=== PATIENT | female | born 1950 | race Caucasian/White ===

== ENCOUNTER 2017-09-10 16:14 | Inpatient (IN) | payer MEDICARE, MEDICAID ==
[~2017-09-10] VITALS: Ht 167.6 cm; Wt 139.3 kg
[2017-09-10 17:12] LABS: CLARITY,URINE TURBID (Clear); COLOR,URINE YELLOW (Yellow); GLUCOSE, URINE NEGATIVE (Neg); KETONES,URINE TRACE mg/dl (Neg); LEUKOCYTE ESTERASE ,URINE LARGE (Neg); NITRITES, URINE NEGATIVE (Neg); OCCULT BLOOD,URINE LARGE (Neg); PH,URINE 5.5 (4.8-8.0); PROTEIN,URINE 100 mg/dl (Neg); UROBILINOGEN,URINE 0.2 E.U/dL (0.2-1.0)
[2017-09-10 17:13] LABS: BASOPHILS % (AUTO) 0.2 % (0-1); EOSINOPHILS # (AUTO) 0.1 X10'3 (0-0.9); HEMATOCRIT 28.2 % (35.0-45.0); HEMOGLOBIN 9.8 g/dl (12.0-16.0); LYMPHOCYTES # (AUTO) 1.3 X10'3 (1.1-4.8); LYMPHOCYTES % (AUTO) 13.5 % (21-51); MEAN CORPUSCULAR HEMOGLOBIN 31.2 PG (27.0-31.0); MEAN CORPUSCULAR HGB CONC 34.6 % (33.0-36.5); MEAN CORPUSCULAR VOLUME 90.4 FL (78-98); MEAN PLATELET VOLUME 6.2 FL (7.4-10.4); MONOCYTES # (AUTO) 0.8 X10'3 (0-0.9); NEUTROPHILS # (AUTO) 7.7 X10'3 (1.8-7.7); NEUTROPHILS % (AUTO) 77.3 % (42-75); PLATELET COUNT 305 X10'3 (140-440); RED BLOOD COUNT 3.12 X10'6 (4.20-5.60); RED CELL DISTRIBUTION WIDTH 16.6 % (11.5-14.5)
[2017-09-10 17:23] LABS: INR 1.1 INR; PARTIAL THROMBOPLASTIN TIME 28 SECONDS (22-32)
[2017-09-10 17:28] LABS: ALANINE AMINOTRANSFERASE 31 U/L (12-78); ALBUMIN 2.6 G/DL (3.4-5.0); ALBUMIN/GLOBULIN RATIO 0.5 (1.1-1.5); ALKALINE PHOSPHATASE 80 IU/L (46-116); ANION GAP 19 (8-16); ASPARTATE AMINO TRANSFERASE 50 U/L (10-37); BILIRUBIN,TOTAL 0.2 MG/DL (0.1-1.0); BLOOD UREA NITROGEN 105 MG/DL (7-18); BUN/CREATININE RATIO 13.5 (6.6-38.0); CALCIUM 11.4 MG/DL (8.5-10.1); CHLORIDE 97 MMOL/L (99-107); CREATININE 7.78 MG/DL (0.40-0.90); GLUCOSE 163 MG/DL (70-104); SODIUM 131 MMOL/L (135-145); TOTAL CARBON DIOXIDE 15.3 MMOL/L (24-32); TOTAL PROTEIN 8.1 G/DL (6.4-8.2); eGFR 5 ML/MIN
[2017-09-10 17:30] LABS: UA COLLECTION TYPE CLN CATCH MIDSTREAM
[2017-09-10] MEDS ORDERED: normal saline 1000ML IV soln IVB ONE (17:35)
[2017-09-10 17:49] LABS: BACTERIA,URINE 2+ /HPF (Neg); MUCUS STRANDS NONE SEEN /LPF (Neg); SQUAMOUS EPITHELIAL CELL,UR FEW /LPF (FEW); WBC,URINE TNTC /HPF (0-4)
[2017-09-10] MEDS ORDERED: CefTRIAXone/D5W-Rocephin 1gm 50 ML IV ONE (17:50)
[2017-09-10] MEDS ORDERED: potassium Cl 20 mEq SR tablet PO ONE (19:30)
[2017-09-10] MEDS ORDERED: normal saline 1000ml 1,000 ML IV SCH (20:49)
[2017-09-10] MEDS ORDERED: ondansetron/PF 4mg/2ml inj IV PRN (20:50)
[2017-09-10] MEDS ORDERED: LEVO100T9 PO (21:14)
[2017-09-10] MEDS ORDERED: ALBU18HF2 INH (21:14)
[2017-09-10] MEDS ORDERED: FERR325T28 PO (21:14)
[2017-09-10] MEDS ORDERED: ACET-2119 PO (21:14)
[2017-09-10] MEDS ORDERED: VIT1TABL50 PO (21:14)
[2017-09-10] MEDS ORDERED: HYDR-565 PO (21:14)
[2017-09-10] MEDS ORDERED: FURO40TA4 PO (21:14)
[2017-09-10] MEDS ORDERED: CLON0.2T PO (21:14)
[2017-09-10] MEDS ORDERED: QUET25TA PO (21:14)
[2017-09-10] MEDS ORDERED: DIPH25CA83 PO (21:14)
[2017-09-10] MEDS ORDERED: DOCU250C4 PO (21:14)
[2017-09-10] MEDS ORDERED: AMLO10TA13 PO (21:14)
[2017-09-10] MEDS ORDERED: LOXA50CA PO (21:14)
[2017-09-10] MEDS ORDERED: QUET50TA PO (21:14)
[2017-09-10] MEDS ORDERED: FOLI1TAB16 PO (21:14)
[2017-09-10] MEDS ORDERED: LACT10SO PO (21:14)
[2017-09-10] MEDS ORDERED: LORA1TAB PO (21:14)
[2017-09-10] MEDS ORDERED: BENZ2TAB7 PO (21:14)
[2017-09-10] MEDS ORDERED: POTASSIUM ACETATE IV SCH (21:15)
[2017-09-10] MEDS ORDERED: NORMAL SALINE IV SCH (21:15)
[2017-09-10 23:30] VITALS: BP 132/75
[2017-09-11 06:13] LABS: BASOPHILS % (AUTO) 0.4 % (0-1); EOSINOPHILS # (AUTO) 0.3 X10'3 (0-0.9); EOSINOPHILS % (AUTO) 3.4 % (0-6); HEMATOCRIT 25.6 % (35.0-45.0); HEMOGLOBIN 8.7 g/dl (12.0-16.0); LYMPHOCYTES % (AUTO) 12.2 % (21-51); MEAN CORPUSCULAR HEMOGLOBIN 31.1 PG (27.0-31.0); MEAN CORPUSCULAR HGB CONC 34.1 % (33.0-36.5); MEAN CORPUSCULAR VOLUME 91.2 FL (78-98); MEAN PLATELET VOLUME 6.4 FL (7.4-10.4); MONOCYTES # (AUTO) 0.7 X10'3 (0-0.9); MONOCYTES % (AUTO) 9.3 % (2-12); NEUTROPHILS # (AUTO) 5.9 X10'3 (1.8-7.7); NEUTROPHILS % (AUTO) 74.7 % (42-75); PLATELET COUNT 248 X10'3 (140-440); RED CELL DISTRIBUTION WIDTH 16.1 % (11.5-14.5); WHITE BLOOD COUNT 7.9 X10'3 (4.5-11.0)
[2017-09-11 06:17] LABS: ALBUMIN 2.3 G/DL (3.4-5.0); ANION GAP 15 (8-16); BLOOD UREA NITROGEN 103 MG/DL (7-18); BUN/CREATININE RATIO 13.4 (6.6-38.0); CALCIUM 10.4 MG/DL (8.5-10.1); CHLORIDE 102 MMOL/L (99-107); CREATININE 7.67 MG/DL (0.40-0.90); GLUCOSE 122 MG/DL (70-104); POTASSIUM 3.1 MMOL/L (3.5-5.1); SODIUM 131 MMOL/L (135-145); eGFR 5 ML/MIN
[2017-09-11 06:19] LABS: TOTAL CARBON DIOXIDE 13.9 MMOL/L (24-32)
[2017-09-11] MEDS ORDERED: normal saline 1000ml 1,000 ML IV SCH (07:05)
[2017-09-11 07:27] VITALS: BP 120/51
[2017-09-11] MEDS ORDERED: docusate sod 100mg capsule PO SCH (08:00)
[2017-09-11] MEDS: lactobacillus rhamnosus 10,000 MMU CELLS/CAPSULE PO SCH ×2 (08:30→19:11)
[2017-09-11] MEDS: CefTRIAXone/D5W-Rocephin 1gm 50 ML IV SCH (08:30)
[2017-09-11] MEDS ORDERED: [UNRECOGNIZED DRUG - OTHER] IV SCH (09:25)
[2017-09-11] MEDS ORDERED: POTASSIUM CL IV SCH (09:25)
[2017-09-11] MEDS ORDERED: SODIUM BICARBONATE IV SCH (09:25)
[2017-09-11] MEDS: POTASSIUM ACETATE IV SCH (11:06)
[2017-09-11] MEDS: [UNRECOGNIZED DRUG - OTHER] IV SCH (11:06)
[2017-09-11] MEDS: SODIUM BICARBONATE IV SCH (11:06)
[2017-09-11] MEDS: HYDROcodone/acetaminophen 5mg/325mg tablet PO PRN ×2 (11:09→19:10)
[2017-09-11 11:19] VITALS: BP 144/58
[2017-09-11] MEDS ORDERED: non-formulary drug (Albuterol Sulfate (Ventolin Hfa) 2 PUFFS) INH PRN (12:10)
[2017-09-11] MEDS ORDERED: albuterol 2.5 MG/3 ML nebule NEB PRN (12:25)
[2017-09-11] MEDS: lactulose 20gm/30ml cup PO SCH ×2 (17:23→21:30)
[2017-09-11] MEDS: benztropine 1mg tablet PO SCH (19:10)
[2017-09-11] MEDS: docusate sod 250mg capsule PO SCH (19:10)
[2017-09-11] MEDS: heparin, porcine 5000 units/ml vial SQ SCH (19:11)
[2017-09-11 19:30] VITALS: BP 135/60
[2017-09-11] MEDS: LOXAPINE 50 MG PO SCH (20:00)
[2017-09-11] MEDS ORDERED: BENZTROPINE MESYLATE PO SCH (20:00)
[2017-09-11] MEDS ORDERED: LOXAPINE SUCCINATE PO SCH (20:00)
[2017-09-11] MEDS ORDERED: non-formulary drug (Quetiapine Fumarate (Seroquel) 1 TAB) PO SCH (21:00)
[2017-09-11] MEDS: QUEtiapine 25mg tablet PO SCH (21:30)
[2017-09-12] VITALS: BP 133/79
[2017-09-12] MEDS: [UNRECOGNIZED DRUG - OTHER] IV SCH ×3 (00:11→13:48)
[2017-09-12] MEDS: POTASSIUM ACETATE IV SCH ×3 (00:11→13:48)
[2017-09-12] MEDS: SODIUM BICARBONATE IV SCH ×3 (00:11→13:48)
[2017-09-12 06:05] LABS: BASOPHILS % (AUTO) 0.4 % (0-1); EOSINOPHILS # (AUTO) 0.3 X10'3 (0-0.9); EOSINOPHILS % (AUTO) 3.9 % (0-6); HEMATOCRIT 23.4 % (35.0-45.0); HEMOGLOBIN 8.1 g/dl (12.0-16.0); LYMPHOCYTES # (AUTO) 1.2 X10'3 (1.1-4.8); LYMPHOCYTES % (AUTO) 16.1 % (21-51); MEAN CORPUSCULAR HGB CONC 34.4 % (33.0-36.5); MEAN PLATELET VOLUME 5.8 FL (7.4-10.4); MONOCYTES # (AUTO) 0.7 X10'3 (0-0.9); NEUTROPHILS # (AUTO) 5.3 X10'3 (1.8-7.7); NEUTROPHILS % (AUTO) 70.6 % (42-75); PLATELET COUNT 231 X10'3 (140-440); RED CELL DISTRIBUTION WIDTH 16.1 % (11.5-14.5); WHITE BLOOD COUNT 7.4 X10'3 (4.5-11.0)
[2017-09-12 06:28] LABS: ALBUMIN 2.1 G/DL (3.4-5.0); ANION GAP 16 (8-16); BLOOD UREA NITROGEN 97 MG/DL (7-18); BUN/CREATININE RATIO 14.3 (6.6-38.0); CALCIUM 9.5 MG/DL (8.5-10.1); CHLORIDE 102 MMOL/L (99-107); CREATININE 6.76 MG/DL (0.40-0.90); GLUCOSE 138 MG/DL (70-104); SODIUM 135 MMOL/L (135-145); TOTAL CARBON DIOXIDE 17.2 MMOL/L (24-32); eGFR 6 ML/MIN
[2017-09-12 06:30] LABS: POTASSIUM 2.9 MMOL/L (3.5-5.1)
[2017-09-12] MEDS ORDERED: potassium Cl 20 mEq SR tablet PO STA (06:56)
[2017-09-12 07:14] VITALS: BP 135/63
[2017-09-12] MEDS ORDERED: non-formulary drug (Vit B Cmplx 3/FA/Vit C/Biotin (Rena-Vite Rx Tablet) 1 TAB) PO SCH (08:00)
[2017-09-12] MEDS ORDERED: non-formulary drug (Amlodipine Besylate 1 TAB) PO SCH (08:00)
[2017-09-12] MEDS: LOXAPINE 50 MG PO SCH ×2 (08:00→19:44)
[2017-09-12] MEDS: heparin, porcine 5000 units/ml vial SQ SCH ×2 (09:02→19:44)
[2017-09-12] MEDS: ferrous sulfate 325mg tablet PO SCH (09:03)
[2017-09-12] MEDS: lactulose 20gm/30ml cup PO SCH ×2 (09:03→16:12)
[2017-09-12] MEDS: benztropine 1mg tablet PO SCH ×2 (09:03→19:43)
[2017-09-12] MEDS: lactobacillus rhamnosus 10,000 MMU CELLS/CAPSULE PO SCH ×2 (09:03→19:43)
[2017-09-12] MEDS: folic acid 1mg tablet PO SCH (09:03)
[2017-09-12] MEDS: docusate sod 250mg capsule PO SCH ×2 (09:03→19:43)
[2017-09-12] MEDS: CefTRIAXone/D5W-Rocephin 1gm 50 ML IV SCH (09:03)
[2017-09-12] MEDS: amLODIPine 5mg tablet PO SCH (09:03)
[2017-09-12] MEDS: QUEtiapine 25mg tablet PO SCH ×2 (09:03→21:28)
[2017-09-12] MEDS: levoTHYROXINE 100mcg tablet PO SCH (09:03)
[2017-09-12] MEDS: folic acid/vitamin B complex w/vitamin C 0.8mg tablet PO SCH (09:03)
[2017-09-12 11:28] VITALS: BP 161/83
[2017-09-12 12:25] LABS: UREA NITROGEN 24HR,URINE 3.7 GM/24HR (7-20)
[2017-09-12] MEDS: cephalexin 250mg capsule PO SCH ×2 (13:48→19:43)
[2017-09-12 20:00] VITALS: BP 146/66
[2017-09-13] VITALS: BP 135/75
[2017-09-13] MEDS: cephalexin 250mg capsule PO SCH ×4 (02:53→21:08)
[2017-09-13 04:29] LABS: BASOPHILS % (AUTO) 0.3 % (0-1); EOSINOPHILS # (AUTO) 0.4 X10'3 (0-0.9); EOSINOPHILS % (AUTO) 4.5 % (0-6); HEMATOCRIT 24.1 % (35.0-45.0); HEMOGLOBIN 8.2 g/dl (12.0-16.0); LYMPHOCYTES # (AUTO) 1.5 X10'3 (1.1-4.8); MEAN CORPUSCULAR HGB CONC 33.9 % (33.0-36.5); MEAN CORPUSCULAR VOLUME 91.3 FL (78-98); MEAN PLATELET VOLUME 6.1 FL (7.4-10.4); MONOCYTES # (AUTO) 0.8 X10'3 (0-0.9); MONOCYTES % (AUTO) 8.6 % (2-12); NEUTROPHILS # (AUTO) 6.1 X10'3 (1.8-7.7); NEUTROPHILS % (AUTO) 69.6 % (42-75); PLATELET COUNT 266 X10'3 (140-440); RED BLOOD COUNT 2.64 X10'6 (4.20-5.60); RED CELL DISTRIBUTION WIDTH 16.8 % (11.5-14.5); WHITE BLOOD COUNT 8.8 X10'3 (4.5-11.0)
[2017-09-13 04:45] LABS: ANION GAP 14 (8-16); BLOOD UREA NITROGEN 88 MG/DL (7-18); CALCIUM 9.5 MG/DL (8.5-10.1); CHLORIDE 103 MMOL/L (99-107); CREATININE 5.85 MG/DL (0.40-0.90); GLUCOSE 136 MG/DL (70-104); POTASSIUM 3.4 MMOL/L (3.5-5.1); SODIUM 137 MMOL/L (135-145); TOTAL CARBON DIOXIDE 20.5 MMOL/L (24-32); eGFR 7 ML/MIN
[2017-09-13 07:31] VITALS: BP 156/71
[2017-09-13] MEDS: docusate sod 250mg capsule PO SCH ×2 (07:51→21:08)
[2017-09-13] MEDS: lactulose 20gm/30ml cup PO SCH ×3 (07:51→15:07)
[2017-09-13] MEDS: benztropine 1mg tablet PO SCH ×2 (07:51→21:07)
[2017-09-13] MEDS: folic acid 1mg tablet PO SCH (07:52)
[2017-09-13] MEDS: folic acid/vitamin B complex w/vitamin C 0.8mg tablet PO SCH (07:52)
[2017-09-13] MEDS: levoTHYROXINE 100mcg tablet PO SCH (07:52)
[2017-09-13] MEDS: ferrous sulfate 325mg tablet PO SCH (07:52)
[2017-09-13] MEDS: lactobacillus rhamnosus 10,000 MMU CELLS/CAPSULE PO SCH ×2 (07:52→21:08)
[2017-09-13] MEDS: amLODIPine 5mg tablet PO SCH (07:56)
[2017-09-13] MEDS: QUEtiapine 25mg tablet PO SCH ×2 (07:57→21:08)
[2017-09-13] MEDS: LOXAPINE 50 MG PO SCH ×2 (07:57→21:09)
[2017-09-13] MEDS: heparin, porcine 5000 units/ml vial SQ SCH ×2 (07:57→21:09)
[2017-09-13] MEDS: SODIUM BICARBONATE IV SCH ×3 (11:24→22:38)
[2017-09-13] MEDS: [UNRECOGNIZED DRUG - OTHER] IV SCH ×3 (11:24→22:38)
[2017-09-13] MEDS: POTASSIUM ACETATE IV SCH ×3 (11:24→22:38)
[2017-09-13 11:53] VITALS: BP 150/74
[2017-09-13] MEDS ORDERED: potassium Cl 40MEQ/NS 500ml 500 ML IV PRN ×2 (15:40)
[2017-09-13] MEDS: K and/or MAG REPLACEMENT MC SCH (15:40)
[2017-09-13] MEDS: potassium Cl 20 mEq SR tablet PO PRN ×2 (17:50→22:35)
[2017-09-13 19:00] VITALS: BP 110/62
[2017-09-14] VITALS: BP 124/73
[2017-09-14] MEDS ORDERED: MESSAGE TO PHARMACY PO ONE (01:15)
[2017-09-14] MEDS ORDERED: dextrose 50%-water 50ml dispensing syringe IV PRN ×4 (01:15→01:20)
[2017-09-14] MEDS ORDERED: dextrose ORAL solution 15 GM/59 ML bottle PO PRN ×4 (01:15→01:20)
[2017-09-14] MEDS ORDERED: glucagon, human recombinant 1mg kit SUBCUT PRN ×2 (01:15→01:20)
[2017-09-14] MEDS ORDERED: insulin Lispro (HumaLOG) vial - multi-dose SQ SCH (01:20)
[2017-09-14] MEDS: potassium Cl 20 mEq SR tablet PO PRN (02:31)
[2017-09-14] MEDS: cephalexin 250mg capsule PO SCH ×4 (02:31→21:30)
[2017-09-14 05:50] LABS: BASOPHILS % (AUTO) 0.6 % (0-1); EOSINOPHILS # (AUTO) 0.4 X10'3 (0-0.9); EOSINOPHILS % (AUTO) 5.3 % (0-6); HEMATOCRIT 26.8 % (35.0-45.0); LYMPHOCYTES % (AUTO) 13.3 % (21-51); MEAN CORPUSCULAR HEMOGLOBIN 30.7 PG (27.0-31.0); MEAN CORPUSCULAR HGB CONC 33.6 % (33.0-36.5); MEAN CORPUSCULAR VOLUME 91.3 FL (78-98); MEAN PLATELET VOLUME 6.2 FL (7.4-10.4); MONOCYTES # (AUTO) 0.7 X10'3 (0-0.9); MONOCYTES % (AUTO) 8.7 % (2-12); NEUTROPHILS # (AUTO) 5.6 X10'3 (1.8-7.7); NEUTROPHILS % (AUTO) 72.1 % (42-75); PLATELET COUNT 283 X10'3 (140-440); RED BLOOD COUNT 2.93 X10'6 (4.20-5.60); RED CELL DISTRIBUTION WIDTH 16.5 % (11.5-14.5); WHITE BLOOD COUNT 7.7 X10'3 (4.5-11.0)
[2017-09-14 06:16] LABS: ALBUMIN 2.1 G/DL (3.4-5.0); ANION GAP 10 (8-16); BLOOD UREA NITROGEN 81 MG/DL (7-18); BUN/CREATININE RATIO 15.5 (6.6-38.0); CALCIUM 9.1 MG/DL (8.5-10.1); CHLORIDE 103 MMOL/L (99-107); CREATININE 5.24 MG/DL (0.40-0.90); GLUCOSE 149 MG/DL (70-104); POTASSIUM 4.2 MMOL/L (3.5-5.1); SODIUM 139 MMOL/L (135-145); eGFR 8 ML/MIN
[2017-09-14 07:00] VITALS: BP 127/72
[2017-09-14] MEDS: K and/or MAG REPLACEMENT MC SCH (07:40)
[2017-09-14] MEDS: lactulose 20gm/30ml cup PO SCH ×2 (08:00)
[2017-09-14] MEDS: amLODIPine 5mg tablet PO SCH (08:58)
[2017-09-14] MEDS: folic acid/vitamin B complex w/vitamin C 0.8mg tablet PO SCH (08:58)
[2017-09-14] MEDS: folic acid 1mg tablet PO SCH (08:58)
[2017-09-14] MEDS: docusate sod 250mg capsule PO SCH ×2 (08:58→21:30)
[2017-09-14] MEDS: lactobacillus rhamnosus 10,000 MMU CELLS/CAPSULE PO SCH ×2 (08:58→21:30)
[2017-09-14] MEDS: ferrous sulfate 325mg tablet PO SCH (08:58)
[2017-09-14] MEDS: QUEtiapine 25mg tablet PO SCH ×2 (08:58→21:30)
[2017-09-14] MEDS: benztropine 1mg tablet PO SCH ×2 (08:58→21:30)
[2017-09-14] MEDS: levoTHYROXINE 100mcg tablet PO SCH (08:58)
[2017-09-14] MEDS: LOXAPINE 50 MG PO SCH ×2 (08:59→21:31)
[2017-09-14] MEDS: heparin, porcine 5000 units/ml vial SQ SCH ×2 (08:59→21:31)
[2017-09-14] MEDS: insulin Lispro (HumaLOG) vial - multi-dose SQ SCH ×3 (09:49→19:12)
[2017-09-14 11:00] VITALS: BP 122/64
[2017-09-14] MEDS: POTASSIUM ACETATE IV SCH (14:06)
[2017-09-14] MEDS: [UNRECOGNIZED DRUG - OTHER] IV SCH (14:06)
[2017-09-14] MEDS: SODIUM BICARBONATE IV SCH (14:06)
[2017-09-14 20:00] VITALS: BP 156/90
[2017-09-14] MEDS ORDERED: insulin glargine (Lantus) pen - multi-dose SQ SCH (21:00)
[2017-09-14] MEDS: insulin glargine (Lantus) pen - multi-dose SQ SCH (21:00)
[2017-09-14] MEDS: LORazepam 1 MG tablet PO PRN (21:30)
[2017-09-15] VITALS: BP 150/80
[2017-09-15] MEDS: SODIUM BICARBONATE IV SCH (01:20)
[2017-09-15] MEDS: [UNRECOGNIZED DRUG - OTHER] IV SCH (01:20)
[2017-09-15] MEDS: POTASSIUM ACETATE IV SCH (01:20)
[2017-09-15] MEDS: cephalexin 250mg capsule PO SCH ×4 (01:36→20:51)
[2017-09-15 05:50] LABS: BASOPHILS % (AUTO) 0.7 % (0-1); EOSINOPHILS # (AUTO) 0.5 X10'3 (0-0.9); EOSINOPHILS % (AUTO) 6.7 % (0-6); HEMATOCRIT 26.1 % (35.0-45.0); HEMOGLOBIN 8.8 g/dl (12.0-16.0); LYMPHOCYTES # (AUTO) 1.3 X10'3 (1.1-4.8); LYMPHOCYTES % (AUTO) 18.5 % (21-51); MEAN CORPUSCULAR HEMOGLOBIN 30.8 PG (27.0-31.0); MEAN CORPUSCULAR HGB CONC 33.7 % (33.0-36.5); MEAN CORPUSCULAR VOLUME 91.3 FL (78-98); MONOCYTES # (AUTO) 0.6 X10'3 (0-0.9); MONOCYTES % (AUTO) 9.2 % (2-12); NEUTROPHILS # (AUTO) 4.5 X10'3 (1.8-7.7); NEUTROPHILS % (AUTO) 64.9 % (42-75); PLATELET COUNT 256 X10'3 (140-440); RED BLOOD COUNT 2.86 X10'6 (4.20-5.60); RED CELL DISTRIBUTION WIDTH 16.5 % (11.5-14.5); WHITE BLOOD COUNT 6.9 X10'3 (4.5-11.0)
[2017-09-15 06:15] LABS: ANION GAP 8 (8-16); BLOOD UREA NITROGEN 69 MG/DL (7-18); BUN/CREATININE RATIO 15.6 (6.6-38.0); CHLORIDE 99 MMOL/L (99-107); CREATININE 4.42 MG/DL (0.40-0.90); GLUCOSE 131 MG/DL (70-104); POTASSIUM 4.1 MMOL/L (3.5-5.1); SODIUM 136 MMOL/L (135-145); TOTAL CARBON DIOXIDE 29.1 MMOL/L (24-32); eGFR 10 ML/MIN
[2017-09-15 08:00] VITALS: BP 150/85
[2017-09-15] MEDS: K and/or MAG REPLACEMENT MC SCH (08:00)
[2017-09-15] MEDS: ferrous sulfate 325mg tablet PO SCH (08:45)
[2017-09-15] MEDS: levoTHYROXINE 100mcg tablet PO SCH (08:45)
[2017-09-15] MEDS: folic acid 1mg tablet PO SCH (08:45)
[2017-09-15] MEDS: folic acid/vitamin B complex w/vitamin C 0.8mg tablet PO SCH (08:45)
[2017-09-15] MEDS: amLODIPine 5mg tablet PO SCH (08:45)
[2017-09-15] MEDS: lactobacillus rhamnosus 10,000 MMU CELLS/CAPSULE PO SCH ×2 (08:45→20:51)
[2017-09-15] MEDS: docusate sod 250mg capsule PO SCH ×2 (08:45→20:50)
[2017-09-15] MEDS: benztropine 1mg tablet PO SCH ×2 (08:45→20:50)
[2017-09-15] MEDS: heparin, porcine 5000 units/ml vial SQ SCH ×2 (08:46→20:53)
[2017-09-15] MEDS: QUEtiapine 25mg tablet PO SCH ×2 (08:47→20:52)
[2017-09-15] MEDS: LOXAPINE 50 MG PO SCH ×2 (08:47→20:51)
[2017-09-15 12:00] VITALS: BP 157/80
[2017-09-15] MEDS: normal saline 1000ml 1,000 ML IV SCH (12:01)
[2017-09-15] MEDS: insulin Lispro (HumaLOG) vial - multi-dose SQ SCH (19:51)
[2017-09-15 20:00] VITALS: BP 140/77
[2017-09-15] MEDS: insulin glargine (Lantus) pen - multi-dose SQ SCH (21:00)
[2017-09-16] VITALS: BP 139/80
[2017-09-16] MEDS: cephalexin 250mg capsule PO SCH ×4 (02:37→21:48)
[2017-09-16 05:57] LABS: BASOPHILS % (AUTO) 0.4 % (0-1); EOSINOPHILS # (AUTO) 0.3 X10'3 (0-0.9); EOSINOPHILS % (AUTO) 4.8 % (0-6); HEMATOCRIT 26.1 % (35.0-45.0); LYMPHOCYTES # (AUTO) 1.4 X10'3 (1.1-4.8); LYMPHOCYTES % (AUTO) 20.1 % (21-51); MEAN CORPUSCULAR HEMOGLOBIN 31.3 PG (27.0-31.0); MEAN CORPUSCULAR HGB CONC 34.5 % (33.0-36.5); MEAN CORPUSCULAR VOLUME 90.8 FL (78-98); MEAN PLATELET VOLUME 6.1 FL (7.4-10.4); MONOCYTES # (AUTO) 0.6 X10'3 (0-0.9); MONOCYTES % (AUTO) 8.6 % (2-12); NEUTROPHILS # (AUTO) 4.6 X10'3 (1.8-7.7); NEUTROPHILS % (AUTO) 66.1 % (42-75); PLATELET COUNT 233 X10'3 (140-440); RED BLOOD COUNT 2.87 X10'6 (4.20-5.60); RED CELL DISTRIBUTION WIDTH 16.5 % (11.5-14.5); WHITE BLOOD COUNT 6.9 X10'3 (4.5-11.0)
[2017-09-16] MEDS: normal saline 1000ml 1,000 ML IV SCH ×2 (07:10→14:07)
[2017-09-16 07:27] VITALS: BP 117/55
[2017-09-16] MEDS: K and/or MAG REPLACEMENT MC SCH (08:00)
[2017-09-16 10:11] LABS: ALANINE AMINOTRANSFERASE 29 U/L (12-78); ALBUMIN 2.2 G/DL (3.4-5.0); ALBUMIN/GLOBULIN RATIO 0.5 (1.1-1.5); ALKALINE PHOSPHATASE 65 IU/L (46-116); ANION GAP 10 (8-16); ASPARTATE AMINO TRANSFERASE 31 U/L (10-37); BILIRUBIN,TOTAL 0.2 MG/DL (0.1-1.0); BLOOD UREA NITROGEN 64 MG/DL (7-18); BUN/CREATININE RATIO 14.1 (6.6-38.0); CALCIUM 9.2 MG/DL (8.5-10.1); CHLORIDE 103 MMOL/L (99-107); CREATININE 4.53 MG/DL (0.40-0.90); GLUCOSE 114 MG/DL (70-104); MAGNESIUM 2.4 MG/DL (1.5-2.4); SODIUM 140 MMOL/L (135-145); TOTAL CARBON DIOXIDE 27.4 MMOL/L (24-32); eGFR 10 ML/MIN
[2017-09-16] MEDS: levoTHYROXINE 100mcg tablet PO SCH (10:13)
[2017-09-16] MEDS: benztropine 1mg tablet PO SCH ×2 (10:13→21:48)
[2017-09-16] MEDS: QUEtiapine 25mg tablet PO SCH ×2 (10:13→21:48)
[2017-09-16 10:14] LABS: POTASSIUM 4.5 MMOL/L (3.5-5.1)
[2017-09-16] MEDS: amLODIPine 5mg tablet PO SCH (10:14)
[2017-09-16] MEDS: lactobacillus rhamnosus 10,000 MMU CELLS/CAPSULE PO SCH ×2 (10:14→21:48)
[2017-09-16] MEDS: folic acid/vitamin B complex w/vitamin C 0.8mg tablet PO SCH (10:14)
[2017-09-16] MEDS: folic acid 1mg tablet PO SCH (10:14)
[2017-09-16] MEDS: ferrous sulfate 325mg tablet PO SCH (10:15)
[2017-09-16] MEDS: docusate sod 250mg capsule PO SCH ×2 (10:15→21:48)
[2017-09-16] MEDS: LOXAPINE 50 MG PO SCH ×2 (10:15→21:49)
[2017-09-16] MEDS: heparin, porcine 5000 units/ml vial SQ SCH ×2 (10:16→20:00)
[2017-09-16 11:45] VITALS: BP 117/63
[2017-09-16] MEDS: insulin Lispro (HumaLOG) vial - multi-dose SQ SCH ×2 (14:00→19:42)
[2017-09-16 20:00] VITALS: BP 138/69
[2017-09-16] MEDS: insulin glargine (Lantus) pen - multi-dose SQ SCH (21:00)
[2017-09-17] VITALS: BP 152/76
[2017-09-17] MEDS: cephalexin 250mg capsule PO SCH ×4 (03:12→21:56)
[2017-09-17 05:48] LABS: BASOPHILS % (AUTO) 0.7 % (0-1); EOSINOPHILS # (AUTO) 0.3 X10'3 (0-0.9); HEMOGLOBIN 8.9 g/dl (12.0-16.0); LYMPHOCYTES # (AUTO) 1.2 X10'3 (1.1-4.8); LYMPHOCYTES % (AUTO) 20.1 % (21-51); MEAN CORPUSCULAR HEMOGLOBIN 30.7 PG (27.0-31.0); MEAN CORPUSCULAR HGB CONC 32.9 % (33.0-36.5); MEAN CORPUSCULAR VOLUME 93.2 FL (78-98); MEAN PLATELET VOLUME 5.9 FL (7.4-10.4); MONOCYTES # (AUTO) 0.5 X10'3 (0-0.9); MONOCYTES % (AUTO) 9.4 % (2-12); NEUTROPHILS # (AUTO) 3.7 X10'3 (1.8-7.7); NEUTROPHILS % (AUTO) 64.8 % (42-75); PLATELET COUNT 212 X10'3 (140-440); WHITE BLOOD COUNT 5.7 X10'3 (4.5-11.0)
[2017-09-17 06:15] LABS: ALANINE AMINOTRANSFERASE 31 U/L (12-78); ALBUMIN/GLOBULIN RATIO 0.5 (1.1-1.5); ALKALINE PHOSPHATASE 53 IU/L (46-116); ANION GAP 9 (8-16); ASPARTATE AMINO TRANSFERASE 27 U/L (10-37); BILIRUBIN,TOTAL 0.3 MG/DL (0.1-1.0); BLOOD UREA NITROGEN 56 MG/DL (7-18); CALCIUM 8.8 MG/DL (8.5-10.1); CHLORIDE 105 MMOL/L (99-107); GLUCOSE 115 MG/DL (70-104); MAGNESIUM 2.3 MG/DL (1.5-2.4); PHOSPHORUS 3.8 MG/DL (2.3-4.5); POTASSIUM 3.9 MMOL/L (3.5-5.1); SODIUM 141 MMOL/L (135-145); TOTAL CARBON DIOXIDE 26.7 MMOL/L (24-32); TOTAL PROTEIN 6.4 G/DL (6.4-8.2); eGFR 10 ML/MIN
[2017-09-17 06:56] VITALS: BP 138/72
[2017-09-17] MEDS: K and/or MAG REPLACEMENT MC SCH (07:28)
[2017-09-17] MEDS: QUEtiapine 25mg tablet PO SCH ×2 (08:45→21:58)
[2017-09-17] MEDS: ferrous sulfate 325mg tablet PO SCH (08:46)
[2017-09-17] MEDS: folic acid/vitamin B complex w/vitamin C 0.8mg tablet PO SCH (08:46)
[2017-09-17] MEDS: lactobacillus rhamnosus 10,000 MMU CELLS/CAPSULE PO SCH ×2 (08:46→21:58)
[2017-09-17] MEDS: folic acid 1mg tablet PO SCH (08:46)
[2017-09-17] MEDS: amLODIPine 5mg tablet PO SCH (08:47)
[2017-09-17] MEDS: benztropine 1mg tablet PO SCH ×2 (08:47→21:58)
[2017-09-17] MEDS: levoTHYROXINE 100mcg tablet PO SCH (08:47)
[2017-09-17] MEDS: docusate sod 250mg capsule PO SCH ×2 (08:47→21:57)
[2017-09-17] MEDS: LOXAPINE 50 MG PO SCH ×2 (08:48→22:01)
[2017-09-17] MEDS: heparin, porcine 5000 units/ml vial SQ SCH ×2 (08:49→21:58)
[2017-09-17] MEDS: insulin Lispro (HumaLOG) vial - multi-dose SQ SCH ×3 (10:17→19:02)
[2017-09-17] MEDS: normal saline 1000ml 1,000 ML IV SCH (16:56)
[2017-09-17 19:00] VITALS: BP 139/87
[2017-09-17] MEDS: insulin glargine (Lantus) pen - multi-dose SQ SCH (21:00)
[2017-09-18] VITALS: BP 142/75
[2017-09-18] MEDS: diphenhydrAMINE 25mg capsule PO PRN ×2 (00:13→22:59)
[2017-09-18] MEDS: cephalexin 250mg capsule PO SCH ×3 (01:55→13:36)
[2017-09-18 06:04] LABS: BASOPHILS % (AUTO) 0.7 % (0-1); EOSINOPHILS # (AUTO) 0.4 X10'3 (0-0.9); HEMATOCRIT 24.5 % (35.0-45.0); HEMOGLOBIN 8.1 g/dl (12.0-16.0); LYMPHOCYTES # (AUTO) 1.4 X10'3 (1.1-4.8); LYMPHOCYTES % (AUTO) 22.3 % (21-51); MEAN CORPUSCULAR HEMOGLOBIN 30.8 PG (27.0-31.0); MEAN CORPUSCULAR HGB CONC 33.2 % (33.0-36.5); MEAN CORPUSCULAR VOLUME 92.9 FL (78-98); MEAN PLATELET VOLUME 6.2 FL (7.4-10.4); MONOCYTES # (AUTO) 0.5 X10'3 (0-0.9); MONOCYTES % (AUTO) 8.4 % (2-12); NEUTROPHILS # (AUTO) 3.8 X10'3 (1.8-7.7); NEUTROPHILS % (AUTO) 62.6 % (42-75); PLATELET COUNT 189 X10'3 (140-440); RED BLOOD COUNT 2.64 X10'6 (4.20-5.60); RED CELL DISTRIBUTION WIDTH 15.9 % (11.5-14.5); WHITE BLOOD COUNT 6.1 X10'3 (4.5-11.0)
[2017-09-18 06:17] LABS: ALANINE AMINOTRANSFERASE 32 U/L (12-78); ALBUMIN/GLOBULIN RATIO 0.5 (1.1-1.5); ALKALINE PHOSPHATASE 51 IU/L (46-116); ANION GAP 10 (8-16); ASPARTATE AMINO TRANSFERASE 32 U/L (10-37); BILIRUBIN,TOTAL 0.2 MG/DL (0.1-1.0); BLOOD UREA NITROGEN 55 MG/DL (7-18); BUN/CREATININE RATIO 13.2 (6.6-38.0); CALCIUM 8.9 MG/DL (8.5-10.1); CHLORIDE 106 MMOL/L (99-107); CREATININE 4.18 MG/DL (0.40-0.90); GLUCOSE 105 MG/DL (70-104); MAGNESIUM 2.2 MG/DL (1.5-2.4); POTASSIUM 3.7 MMOL/L (3.5-5.1); SODIUM 140 MMOL/L (135-145); TOTAL CARBON DIOXIDE 23.9 MMOL/L (24-32); eGFR 11 ML/MIN
[2017-09-18] MEDS: K and/or MAG REPLACEMENT MC SCH (07:28)
[2017-09-18] MEDS: amLODIPine 5mg tablet PO SCH (07:38)
[2017-09-18] MEDS: ferrous sulfate 325mg tablet PO SCH (07:38)
[2017-09-18] MEDS: folic acid 1mg tablet PO SCH (07:38)
[2017-09-18] MEDS: QUEtiapine 25mg tablet PO SCH ×2 (07:38→20:58)
[2017-09-18] MEDS: levoTHYROXINE 100mcg tablet PO SCH (07:39)
[2017-09-18] MEDS: heparin, porcine 5000 units/ml vial SQ SCH ×2 (07:39→20:58)
[2017-09-18] MEDS: docusate sod 250mg capsule PO SCH ×2 (07:39→20:58)
[2017-09-18] MEDS: LOXAPINE 50 MG PO SCH ×2 (07:39→20:57)
[2017-09-18] MEDS: benztropine 1mg tablet PO SCH ×2 (07:39→20:59)
[2017-09-18] MEDS: folic acid/vitamin B complex w/vitamin C 0.8mg tablet PO SCH (07:39)
[2017-09-18] MEDS: lactobacillus rhamnosus 10,000 MMU CELLS/CAPSULE PO SCH ×2 (07:39→20:58)
[2017-09-18 08:00] VITALS: BP 147/81
[2017-09-18] MEDS: insulin Lispro (HumaLOG) vial - multi-dose SQ SCH ×3 (10:28→19:05)
[2017-09-18 12:00] VITALS: BP 143/71
[2017-09-18] MEDS: normal saline 1000ml 1,000 ML IV SCH (13:47)
[2017-09-18 20:00] VITALS: BP 132/76
[2017-09-18] MEDS: insulin glargine (Lantus) pen - multi-dose SQ SCH (20:50)
[2017-09-18] MEDS: HYDROcodone/acetaminophen 5mg/325mg tablet PO PRN (23:00)
[2017-09-19] VITALS: BP 145/74
[2017-09-19] MEDS: normal saline 1000ml 1,000 ML IV SCH (05:15)
[2017-09-19 05:17] LABS: BASOPHILS # (AUTO) 0.1 X10'3 (0-0.2); BASOPHILS % (AUTO) 0.8 % (0-1); EOSINOPHILS # (AUTO) 0.3 X10'3 (0-0.9); HEMATOCRIT 24.2 % (35.0-45.0); HEMOGLOBIN 8.1 g/dl (12.0-16.0); LYMPHOCYTES # (AUTO) 1.5 X10'3 (1.1-4.8); LYMPHOCYTES % (AUTO) 22.7 % (21-51); MEAN CORPUSCULAR HGB CONC 33.3 % (33.0-36.5); MEAN PLATELET VOLUME 6.1 FL (7.4-10.4); MONOCYTES # (AUTO) 0.6 X10'3 (0-0.9); MONOCYTES % (AUTO) 8.7 % (2-12); NEUTROPHILS # (AUTO) 4.1 X10'3 (1.8-7.7); NEUTROPHILS % (AUTO) 62.8 % (42-75); PLATELET COUNT 181 X10'3 (140-440); RED CELL DISTRIBUTION WIDTH 15.9 % (11.5-14.5); WHITE BLOOD COUNT 6.5 X10'3 (4.5-11.0)
[2017-09-19 05:47] LABS: ALANINE AMINOTRANSFERASE 35 U/L (12-78); ALBUMIN 2.1 G/DL (3.4-5.0); ALBUMIN/GLOBULIN RATIO 0.5 (1.1-1.5); ALKALINE PHOSPHATASE 56 IU/L (46-116); ANION GAP 11 (8-16); ASPARTATE AMINO TRANSFERASE 27 U/L (10-37); BILIRUBIN,TOTAL 0.2 MG/DL (0.1-1.0); BLOOD UREA NITROGEN 53 MG/DL (7-18); BUN/CREATININE RATIO 12.6 (6.6-38.0); CALCIUM 8.8 MG/DL (8.5-10.1); CHLORIDE 107 MMOL/L (99-107); CREATININE 4.21 MG/DL (0.40-0.90); GLUCOSE 114 MG/DL (70-104); MAGNESIUM 2.2 MG/DL (1.5-2.4); PHOSPHORUS 4.8 MG/DL (2.3-4.5); SODIUM 141 MMOL/L (135-145); TOTAL CARBON DIOXIDE 23.2 MMOL/L (24-32); TOTAL PROTEIN 6.4 G/DL (6.4-8.2); eGFR 11 ML/MIN
[2017-09-19 06:59] VITALS: BP 147/67
[2017-09-19] MEDS: K and/or MAG REPLACEMENT MC SCH (08:00)
[2017-09-19] MEDS: folic acid 1mg tablet PO SCH (08:13)
[2017-09-19] MEDS: lactobacillus rhamnosus 10,000 MMU CELLS/CAPSULE PO SCH ×2 (08:13→20:21)
[2017-09-19] MEDS: ferrous sulfate 325mg tablet PO SCH (08:13)
[2017-09-19] MEDS: benztropine 1mg tablet PO SCH ×2 (08:14→20:21)
[2017-09-19] MEDS: docusate sod 250mg capsule PO SCH ×2 (08:14→20:21)
[2017-09-19] MEDS: levoTHYROXINE 100mcg tablet PO SCH (08:14)
[2017-09-19] MEDS: folic acid/vitamin B complex w/vitamin C 0.8mg tablet PO SCH (08:14)
[2017-09-19] MEDS: amLODIPine 5mg tablet PO SCH (08:14)
[2017-09-19] MEDS: QUEtiapine 25mg tablet PO SCH ×2 (08:14→20:21)
[2017-09-19] MEDS: heparin, porcine 5000 units/ml vial SQ SCH ×2 (08:15→20:22)
[2017-09-19] MEDS: LOXAPINE 50 MG PO SCH ×2 (08:17→20:22)
[2017-09-19] MEDS: insulin Lispro (HumaLOG) vial - multi-dose SQ SCH ×3 (08:23→18:29)
[2017-09-19 11:58] VITALS: BP 120/72
[2017-09-19] MEDS: nystatin 15 GM powder TP SCH ×2 (13:12→20:57)
[2017-09-19 20:00] VITALS: BP 125/77
[2017-09-19] MEDS: lactulose 20gm/30ml cup PO PRN (20:20)
[2017-09-19] MEDS: LORazepam 1 MG tablet PO PRN (20:21)
[2017-09-19] MEDS: insulin glargine (Lantus) pen - multi-dose SQ SCH (20:43)
[2017-09-20] VITALS: BP 109/62
[2017-09-20 04:57] LABS: BASOPHILS % (AUTO) 0.7 % (0-1); EOSINOPHILS # (AUTO) 0.3 X10'3 (0-0.9); EOSINOPHILS % (AUTO) 5.3 % (0-6); HEMATOCRIT 23.3 % (35.0-45.0); HEMOGLOBIN 7.9 g/dl (12.0-16.0); LYMPHOCYTES # (AUTO) 1.4 X10'3 (1.1-4.8); MEAN CORPUSCULAR HEMOGLOBIN 31.7 PG (27.0-31.0); MEAN CORPUSCULAR VOLUME 93.4 FL (78-98); MEAN PLATELET VOLUME 6.2 FL (7.4-10.4); MONOCYTES # (AUTO) 0.4 X10'3 (0-0.9); MONOCYTES % (AUTO) 7.6 % (2-12); NEUTROPHILS # (AUTO) 3.6 X10'3 (1.8-7.7); NEUTROPHILS % (AUTO) 62.4 % (42-75); PLATELET COUNT 173 X10'3 (140-440); RED BLOOD COUNT 2.49 X10'6 (4.20-5.60); RED CELL DISTRIBUTION WIDTH 15.8 % (11.5-14.5); WHITE BLOOD COUNT 5.8 X10'3 (4.5-11.0)
[2017-09-20 05:19] LABS: ALANINE AMINOTRANSFERASE 34 U/L (12-78); ALBUMIN 2.1 G/DL (3.4-5.0); ALBUMIN/GLOBULIN RATIO 0.5 (1.1-1.5); ALKALINE PHOSPHATASE 54 IU/L (46-116); ANION GAP 10 (8-16); ASPARTATE AMINO TRANSFERASE 27 U/L (10-37); BILIRUBIN,TOTAL 0.2 MG/DL (0.1-1.0); BLOOD UREA NITROGEN 54 MG/DL (7-18); BUN/CREATININE RATIO 12.8 (6.6-38.0); CHLORIDE 108 MMOL/L (99-107); CREATININE 4.23 MG/DL (0.40-0.90); GLUCOSE 114 MG/DL (70-104); MAGNESIUM 2.2 MG/DL (1.5-2.4); PHOSPHORUS 4.9 MG/DL (2.3-4.5); SODIUM 141 MMOL/L (135-145); TOTAL CARBON DIOXIDE 23.3 MMOL/L (24-32); TOTAL PROTEIN 6.2 G/DL (6.4-8.2); eGFR 11 ML/MIN
[2017-09-20] MEDS: lactulose 20gm/30ml cup PO PRN (05:28)
[2017-09-20] MEDS: normal saline 1000ml 1,000 ML IV SCH (05:28)
[2017-09-20 07:13] VITALS: BP 132/65
[2017-09-20] MEDS: K and/or MAG REPLACEMENT MC SCH (08:00)
[2017-09-20] MEDS: LOXAPINE 50 MG PO SCH ×2 (08:49→21:09)
[2017-09-20] MEDS: QUEtiapine 25mg tablet PO SCH ×2 (08:51→21:04)
[2017-09-20] MEDS: lactobacillus rhamnosus 10,000 MMU CELLS/CAPSULE PO SCH ×2 (08:52→21:03)
[2017-09-20] MEDS: benztropine 1mg tablet PO SCH ×2 (08:55→21:03)
[2017-09-20] MEDS: folic acid/vitamin B complex w/vitamin C 0.8mg tablet PO SCH (08:55)
[2017-09-20] MEDS: levoTHYROXINE 100mcg tablet PO SCH (08:55)
[2017-09-20] MEDS: folic acid 1mg tablet PO SCH (08:56)
[2017-09-20] MEDS: docusate sod 250mg capsule PO SCH ×2 (08:56→21:03)
[2017-09-20] MEDS: ferrous sulfate 325mg tablet PO SCH (08:56)
[2017-09-20] MEDS: amLODIPine 5mg tablet PO SCH (08:57)
[2017-09-20] MEDS: heparin, porcine 5000 units/ml vial SQ SCH ×2 (08:58→21:05)
[2017-09-20] MEDS: nystatin 15 GM powder TP SCH ×3 (08:58→21:09)
[2017-09-20] MEDS: insulin Lispro (HumaLOG) vial - multi-dose SQ SCH ×3 (09:06→18:44)
[2017-09-20 11:30] VITALS: BP 117/67
[2017-09-20 20:00] VITALS: BP 120/56
[2017-09-20] MEDS: insulin glargine (Lantus) pen - multi-dose SQ SCH (21:00)
[2017-09-21] VITALS: BP 149/71
[2017-09-21] MEDS: normal saline 1000ml 1,000 ML IV SCH (00:50)
[2017-09-21 07:00] VITALS: BP 133/66
[2017-09-21] MEDS: K and/or MAG REPLACEMENT MC SCH (08:00)
[2017-09-21] MEDS: ferrous sulfate 325mg tablet PO SCH (08:05)
[2017-09-21] MEDS: folic acid 1mg tablet PO SCH (08:05)
[2017-09-21] MEDS: folic acid/vitamin B complex w/vitamin C 0.8mg tablet PO SCH (08:05)
[2017-09-21] MEDS: levoTHYROXINE 100mcg tablet PO SCH (08:05)
[2017-09-21] MEDS: amLODIPine 5mg tablet PO SCH (08:06)
[2017-09-21] MEDS: QUEtiapine 25mg tablet PO SCH ×2 (08:06→20:59)
[2017-09-21] MEDS: benztropine 1mg tablet PO SCH ×2 (08:06→20:59)
[2017-09-21] MEDS: docusate sod 250mg capsule PO SCH ×2 (08:06→20:58)
[2017-09-21] MEDS: lactobacillus rhamnosus 10,000 MMU CELLS/CAPSULE PO SCH ×2 (08:06→20:58)
[2017-09-21] MEDS: heparin, porcine 5000 units/ml vial SQ SCH ×2 (08:07→20:58)
[2017-09-21] MEDS: LOXAPINE 50 MG PO SCH ×2 (08:07→20:57)
[2017-09-21] MEDS: insulin Lispro (HumaLOG) vial - multi-dose SQ SCH ×3 (08:19→18:51)
[2017-09-21] MEDS: nystatin 15 GM powder TP SCH ×3 (08:20→20:57)
[2017-09-21 11:00] VITALS: BP 139/73
[2017-09-21 11:07] LABS: ALBUMIN 2.2 G/DL (3.4-5.0); ANION GAP 11 (8-16); BLOOD UREA NITROGEN 53 MG/DL (7-18); BUN/CREATININE RATIO 12.7 (6.6-38.0); CALCIUM 8.9 MG/DL (8.5-10.1); CHLORIDE 107 MMOL/L (99-107); CREATININE 4.16 MG/DL (0.40-0.90); GLUCOSE 146 MG/DL (70-104); POTASSIUM 4.2 MMOL/L (3.5-5.1); SODIUM 141 MMOL/L (135-145); TOTAL CARBON DIOXIDE 22.6 MMOL/L (24-32); eGFR 11 ML/MIN
[2017-09-21] MEDS: LORazepam 1 MG tablet PO PRN (17:07)
[2017-09-21 20:00] VITALS: BP 151/79
[2017-09-21] MEDS: insulin glargine (Lantus) pen - multi-dose SQ SCH (20:59)
[2017-09-22] VITALS: BP 150/81
[2017-09-22 07:28] VITALS: BP 129/70
[2017-09-22] MEDS: K and/or MAG REPLACEMENT MC SCH (08:00)
[2017-09-22] MEDS: benztropine 1mg tablet PO SCH ×2 (08:53→20:28)
[2017-09-22] MEDS: ferrous sulfate 325mg tablet PO SCH (08:53)
[2017-09-22] MEDS: lactobacillus rhamnosus 10,000 MMU CELLS/CAPSULE PO SCH ×2 (08:53→20:27)
[2017-09-22] MEDS: docusate sod 250mg capsule PO SCH ×2 (08:53→20:27)
[2017-09-22] MEDS: folic acid/vitamin B complex w/vitamin C 0.8mg tablet PO SCH (08:54)
[2017-09-22] MEDS: LOXAPINE 50 MG PO SCH ×2 (08:54→20:28)
[2017-09-22] MEDS: amLODIPine 5mg tablet PO SCH (08:54)
[2017-09-22] MEDS: heparin, porcine 5000 units/ml vial SQ SCH ×2 (08:55→20:28)
[2017-09-22] MEDS: QUEtiapine 25mg tablet PO SCH ×2 (08:55→20:28)
[2017-09-22] MEDS: levoTHYROXINE 100mcg tablet PO SCH (08:55)
[2017-09-22] MEDS: nystatin 15 GM powder TP SCH ×3 (08:59→20:28)
[2017-09-22] MEDS: folic acid 1mg tablet PO SCH (09:00)
[2017-09-22] MEDS: insulin Lispro (HumaLOG) vial - multi-dose SQ SCH ×3 (09:08→18:19)
[2017-09-22 11:00] VITALS: BP 156/79
[2017-09-22 18:00] VITALS: BP 161/79
[2017-09-22 18:30] VITALS: BP 155/88
[2017-09-22] MEDS: insulin glargine (Lantus) pen - multi-dose SQ SCH (21:00)
[2017-09-23] VITALS: BP 161/83
[2017-09-23] MEDS ORDERED: temazepam 15mg capsule PO ONE (00:20)
[2017-09-23 07:03] VITALS: BP 128/58
[2017-09-23] MEDS: K and/or MAG REPLACEMENT MC SCH (08:00)
[2017-09-23] MEDS: insulin Lispro (HumaLOG) vial - multi-dose SQ SCH ×3 (08:35→18:51)
[2017-09-23] MEDS: amLODIPine 5mg tablet PO SCH (08:37)
[2017-09-23] MEDS: lactobacillus rhamnosus 10,000 MMU CELLS/CAPSULE PO SCH ×2 (08:37→20:28)
[2017-09-23] MEDS: heparin, porcine 5000 units/ml vial SQ SCH ×2 (08:37→20:31)
[2017-09-23] MEDS: ferrous sulfate 325mg tablet PO SCH (08:37)
[2017-09-23] MEDS: LOXAPINE 50 MG PO SCH ×2 (08:37→20:28)
[2017-09-23] MEDS: benztropine 1mg tablet PO SCH ×2 (08:37→20:30)
[2017-09-23] MEDS: folic acid 1mg tablet PO SCH (08:37)
[2017-09-23] MEDS: levoTHYROXINE 100mcg tablet PO SCH (08:38)
[2017-09-23] MEDS: nystatin 15 GM powder TP SCH ×3 (08:38→21:35)
[2017-09-23] MEDS: folic acid/vitamin B complex w/vitamin C 0.8mg tablet PO SCH (08:38)
[2017-09-23] MEDS: QUEtiapine 25mg tablet PO SCH ×2 (08:38→20:27)
[2017-09-23] MEDS: docusate sod 250mg capsule PO SCH ×2 (08:38→20:28)
[2017-09-23 12:00] VITALS: BP 124/52
[2017-09-23 19:00] VITALS: BP 137/81
[2017-09-24] VITALS: BP 112/64
[2017-09-24] MEDS: benztropine 1mg tablet PO SCH ×2 (07:20→20:14)
[2017-09-24] MEDS: docusate sod 250mg capsule PO SCH ×2 (07:21→20:14)
[2017-09-24] MEDS: ferrous sulfate 325mg tablet PO SCH (07:21)
[2017-09-24] MEDS: folic acid/vitamin B complex w/vitamin C 0.8mg tablet PO SCH (07:21)
[2017-09-24] MEDS: folic acid 1mg tablet PO SCH (07:21)
[2017-09-24] MEDS: amLODIPine 5mg tablet PO SCH (07:21)
[2017-09-24] MEDS: lactobacillus rhamnosus 10,000 MMU CELLS/CAPSULE PO SCH ×2 (07:21→20:14)
[2017-09-24] MEDS: levoTHYROXINE 100mcg tablet PO SCH (07:22)
[2017-09-24] MEDS: LOXAPINE 50 MG PO SCH ×2 (07:22→20:14)
[2017-09-24] MEDS: nystatin 15 GM powder TP SCH ×3 (07:22→20:17)
[2017-09-24] MEDS: QUEtiapine 25mg tablet PO SCH ×2 (07:22→20:48)
[2017-09-24] MEDS: heparin, porcine 5000 units/ml vial SQ SCH ×3 (07:26→20:15)
[2017-09-24] MEDS: K and/or MAG REPLACEMENT MC SCH (07:29)
[2017-09-24 07:34] VITALS: BP 113/63
[2017-09-24 08:51] LABS: BASOPHILS % (AUTO) 0.7 % (0-1); EOSINOPHILS # (AUTO) 0.2 X10'3 (0-0.9); EOSINOPHILS % (AUTO) 3.3 % (0-6); HEMATOCRIT 23.4 % (35.0-45.0); HEMOGLOBIN 7.9 g/dl (12.0-16.0); LYMPHOCYTES # (AUTO) 1.3 X10'3 (1.1-4.8); LYMPHOCYTES % (AUTO) 22.9 % (21-51); MEAN CORPUSCULAR HEMOGLOBIN 31.3 PG (27.0-31.0); MEAN CORPUSCULAR HGB CONC 33.7 % (33.0-36.5); MEAN CORPUSCULAR VOLUME 92.9 FL (78-98); MEAN PLATELET VOLUME 6.4 FL (7.4-10.4); MONOCYTES # (AUTO) 0.5 X10'3 (0-0.9); NEUTROPHILS # (AUTO) 3.8 X10'3 (1.8-7.7); NEUTROPHILS % (AUTO) 65.1 % (42-75); PLATELET COUNT 189 X10'3 (140-440); RED BLOOD COUNT 2.52 X10'6 (4.20-5.60); RED CELL DISTRIBUTION WIDTH 15.2 % (11.5-14.5); WHITE BLOOD COUNT 5.8 X10'3 (4.5-11.0)
[2017-09-24 09:05] LABS: ALANINE AMINOTRANSFERASE 24 U/L (12-78); ALBUMIN 2.2 G/DL (3.4-5.0); ALBUMIN/GLOBULIN RATIO 0.5 (1.1-1.5); ALKALINE PHOSPHATASE 60 IU/L (46-116); ANION GAP 11 (8-16); ASPARTATE AMINO TRANSFERASE 17 U/L (10-37); BILIRUBIN,TOTAL 0.2 MG/DL (0.1-1.0); BLOOD UREA NITROGEN 60 MG/DL (7-18); BUN/CREATININE RATIO 13.5 (6.6-38.0); CALCIUM 9.3 MG/DL (8.5-10.1); CHLORIDE 109 MMOL/L (99-107); CREATININE 4.43 MG/DL (0.40-0.90); GLUCOSE 109 MG/DL (70-104); MAGNESIUM 2.3 MG/DL (1.5-2.4); PHOSPHORUS 5.9 MG/DL (2.3-4.5); POTASSIUM 3.9 MMOL/L (3.5-5.1); SODIUM 141 MMOL/L (135-145); TOTAL CARBON DIOXIDE 21.1 MMOL/L (24-32); TOTAL PROTEIN 6.3 G/DL (6.4-8.2); eGFR 10 ML/MIN
[2017-09-24] MEDS: insulin Lispro (HumaLOG) vial - multi-dose SQ SCH ×3 (09:09→18:59)
[2017-09-24] MEDS ORDERED: magnesium hydroxide 30ml (MOM) UD suspension PO ONE (10:15)
[2017-09-24 11:22] VITALS: BP 135/74
[2017-09-24 19:00] VITALS: BP 144/89
[2017-09-25] VITALS: BP 134/65
[2017-09-25 05:12] LABS: BASOPHILS % (AUTO) 0.7 % (0-1); EOSINOPHILS # (AUTO) 0.2 X10'3 (0-0.9); EOSINOPHILS % (AUTO) 3.6 % (0-6); HEMATOCRIT 25.1 % (35.0-45.0); HEMOGLOBIN 8.2 g/dl (12.0-16.0); LYMPHOCYTES # (AUTO) 1.6 X10'3 (1.1-4.8); LYMPHOCYTES % (AUTO) 23.3 % (21-51); MEAN CORPUSCULAR HEMOGLOBIN 30.7 PG (27.0-31.0); MEAN CORPUSCULAR HGB CONC 32.6 % (33.0-36.5); MEAN PLATELET VOLUME 7.2 FL (7.4-10.4); MONOCYTES # (AUTO) 0.6 X10'3 (0-0.9); MONOCYTES % (AUTO) 8.5 % (2-12); NEUTROPHILS # (AUTO) 4.5 X10'3 (1.8-7.7); NEUTROPHILS % (AUTO) 63.9 % (42-75); PLATELET COUNT 226 X10'3 (140-440); RED BLOOD COUNT 2.67 X10'6 (4.20-5.60); WHITE BLOOD COUNT 6.9 X10'3 (4.5-11.0)
[2017-09-25 05:19] LABS: ALBUMIN 2.4 G/DL (3.4-5.0); ANION GAP 14 (8-16); BLOOD UREA NITROGEN 60 MG/DL (7-18); BUN/CREATININE RATIO 13.7 (6.6-38.0); CALCIUM 9.2 MG/DL (8.5-10.1); CHLORIDE 105 MMOL/L (99-107); CREATININE 4.37 MG/DL (0.40-0.90); GLUCOSE 108 MG/DL (70-104); MAGNESIUM 2.4 MG/DL (1.5-2.4); PHOSPHORUS 5.3 MG/DL (2.3-4.5); SODIUM 138 MMOL/L (135-145); TOTAL CARBON DIOXIDE 18.6 MMOL/L (24-32); eGFR 10 ML/MIN
[2017-09-25 07:18] VITALS: BP 121/50
[2017-09-25] MEDS: lactobacillus rhamnosus 10,000 MMU CELLS/CAPSULE PO SCH ×2 (07:39→19:09)
[2017-09-25] MEDS: ferrous sulfate 325mg tablet PO SCH (07:39)
[2017-09-25] MEDS: docusate sod 250mg capsule PO SCH ×2 (07:39→19:08)
[2017-09-25] MEDS: benztropine 1mg tablet PO SCH ×2 (07:39→19:08)
[2017-09-25] MEDS: amLODIPine 5mg tablet PO SCH (07:40)
[2017-09-25] MEDS: folic acid/vitamin B complex w/vitamin C 0.8mg tablet PO SCH (07:40)
[2017-09-25] MEDS: LOXAPINE 50 MG PO SCH ×2 (07:40→19:09)
[2017-09-25] MEDS: folic acid 1mg tablet PO SCH (07:40)
[2017-09-25] MEDS: QUEtiapine 25mg tablet PO SCH ×2 (07:41→21:06)
[2017-09-25] MEDS: lactulose 20gm/30ml cup PO PRN ×2 (07:41→19:10)
[2017-09-25] MEDS: levoTHYROXINE 100mcg tablet PO SCH (07:41)
[2017-09-25] MEDS: heparin, porcine 5000 units/ml vial SQ SCH ×2 (07:41→19:09)
[2017-09-25] MEDS: nystatin 15 GM powder TP SCH ×3 (07:44→21:06)
[2017-09-25] MEDS: K and/or MAG REPLACEMENT MC SCH (08:00)
[2017-09-25 11:16] VITALS: BP 115/73
[2017-09-25] MEDS: insulin Lispro (HumaLOG) vial - multi-dose SQ SCH ×2 (12:37→18:49)
[2017-09-25 20:00] VITALS: BP 152/91
[2017-09-26] VITALS: BP 148/77
[2017-09-26 05:03] LABS: BASOPHILS % (AUTO) 0.6 % (0-1); EOSINOPHILS # (AUTO) 0.3 X10'3 (0-0.9); EOSINOPHILS % (AUTO) 4.7 % (0-6); HEMATOCRIT 23.9 % (35.0-45.0); HEMOGLOBIN 8.1 g/dl (12.0-16.0); LYMPHOCYTES # (AUTO) 1.6 X10'3 (1.1-4.8); LYMPHOCYTES % (AUTO) 23.3 % (21-51); MEAN CORPUSCULAR HEMOGLOBIN 31.4 PG (27.0-31.0); MEAN CORPUSCULAR HGB CONC 33.7 % (33.0-36.5); MEAN CORPUSCULAR VOLUME 93.2 FL (78-98); MEAN PLATELET VOLUME 7.2 FL (7.4-10.4); MONOCYTES # (AUTO) 0.6 X10'3 (0-0.9); NEUTROPHILS # (AUTO) 4.3 X10'3 (1.8-7.7); NEUTROPHILS % (AUTO) 62.4 % (42-75); PLATELET COUNT 228 X10'3 (140-440); RED BLOOD COUNT 2.57 X10'6 (4.20-5.60); RED CELL DISTRIBUTION WIDTH 15.9 % (11.5-14.5); WHITE BLOOD COUNT 6.9 X10'3 (4.5-11.0)
[2017-09-26 05:15] LABS: ALBUMIN 2.4 G/DL (3.4-5.0); ANION GAP 12 (8-16); BLOOD UREA NITROGEN 58 MG/DL (7-18); BUN/CREATININE RATIO 13.3 (6.6-38.0); CHLORIDE 103 MMOL/L (99-107); CREATININE 4.37 MG/DL (0.40-0.90); GLUCOSE 113 MG/DL (70-104); MAGNESIUM 2.4 MG/DL (1.5-2.4); PHOSPHORUS 5.1 MG/DL (2.3-4.5); POTASSIUM 3.5 MMOL/L (3.5-5.1); SODIUM 134 MMOL/L (135-145); TOTAL CARBON DIOXIDE 19.1 MMOL/L (24-32); eGFR 10 ML/MIN
[2017-09-26] MEDS: QUEtiapine 25mg tablet PO SCH ×2 (07:10→20:44)
[2017-09-26] MEDS: folic acid 1mg tablet PO SCH (07:10)
[2017-09-26] MEDS: lactobacillus rhamnosus 10,000 MMU CELLS/CAPSULE PO SCH ×2 (07:10→20:43)
[2017-09-26] MEDS: docusate sod 250mg capsule PO SCH ×2 (07:10→20:43)
[2017-09-26] MEDS: ferrous sulfate 325mg tablet PO SCH (07:10)
[2017-09-26] MEDS: folic acid/vitamin B complex w/vitamin C 0.8mg tablet PO SCH (07:11)
[2017-09-26] MEDS: amLODIPine 5mg tablet PO SCH (07:11)
[2017-09-26] MEDS: levoTHYROXINE 100mcg tablet PO SCH (07:11)
[2017-09-26] MEDS: heparin, porcine 5000 units/ml vial SQ SCH ×2 (07:11→20:44)
[2017-09-26] MEDS: benztropine 1mg tablet PO SCH ×2 (07:11→20:43)
[2017-09-26] MEDS: lactulose 20gm/30ml cup PO PRN ×2 (07:16→20:47)
[2017-09-26] MEDS: K and/or MAG REPLACEMENT MC SCH (07:17)
[2017-09-26] MEDS: LOXAPINE 50 MG PO SCH ×2 (07:18→20:43)
[2017-09-26 07:52] VITALS: BP 113/62
[2017-09-26] MEDS: nystatin 15 GM powder TP SCH ×3 (08:46→20:45)
[2017-09-26] MEDS: insulin Lispro (HumaLOG) vial - multi-dose SQ SCH ×2 (09:05→18:39)
[2017-09-26 11:31] VITALS: BP 133/68
[2017-09-26 20:00] VITALS: BP 151/72
[2017-09-27] VITALS: BP 146/74
[2017-09-27 05:18] LABS: BASOPHILS % (AUTO) 0.9 % (0-1); EOSINOPHILS # (AUTO) 0.2 X10'3 (0-0.9); EOSINOPHILS % (AUTO) 3.3 % (0-6); HEMATOCRIT 23.8 % (35.0-45.0); HEMOGLOBIN 7.9 g/dl (12.0-16.0); LYMPHOCYTES # (AUTO) 1.4 X10'3 (1.1-4.8); LYMPHOCYTES % (AUTO) 23.6 % (21-51); MEAN CORPUSCULAR HGB CONC 33.2 % (33.0-36.5); MEAN CORPUSCULAR VOLUME 93.3 FL (78-98); MEAN PLATELET VOLUME 7.1 FL (7.4-10.4); MONOCYTES # (AUTO) 0.6 X10'3 (0-0.9); MONOCYTES % (AUTO) 9.8 % (2-12); NEUTROPHILS # (AUTO) 3.6 X10'3 (1.8-7.7); NEUTROPHILS % (AUTO) 62.4 % (42-75); PLATELET COUNT 211 X10'3 (140-440); RED BLOOD COUNT 2.56 X10'6 (4.20-5.60); RED CELL DISTRIBUTION WIDTH 16.2 % (11.5-14.5); WHITE BLOOD COUNT 5.8 X10'3 (4.5-11.0)
[2017-09-27 05:23] LABS: ALBUMIN 2.3 G/DL (3.4-5.0); ANION GAP 14 (8-16); BLOOD UREA NITROGEN 60 MG/DL (7-18); BUN/CREATININE RATIO 13.8 (6.6-38.0); CALCIUM 9.3 MG/DL (8.5-10.1); CHLORIDE 109 MMOL/L (99-107); CREATININE 4.35 MG/DL (0.40-0.90); GLUCOSE 88 MG/DL (70-104); MAGNESIUM 2.4 MG/DL (1.5-2.4); PHOSPHORUS 5.9 MG/DL (2.3-4.5); SODIUM 142 MMOL/L (135-145); eGFR 10 ML/MIN
[2017-09-27 07:00] VITALS: BP 140/72
[2017-09-27] MEDS: K and/or MAG REPLACEMENT MC SCH (08:00)
[2017-09-27] MEDS: folic acid 1mg tablet PO SCH (09:07)
[2017-09-27] MEDS: folic acid/vitamin B complex w/vitamin C 0.8mg tablet PO SCH (09:07)
[2017-09-27] MEDS: heparin, porcine 5000 units/ml vial SQ SCH (09:07)
[2017-09-27] MEDS: levoTHYROXINE 100mcg tablet PO SCH (09:07)
[2017-09-27] MEDS: lactobacillus rhamnosus 10,000 MMU CELLS/CAPSULE PO SCH (09:07)
[2017-09-27] MEDS: amLODIPine 5mg tablet PO SCH (09:07)
[2017-09-27] MEDS: QUEtiapine 25mg tablet PO SCH (09:07)
[2017-09-27] MEDS: docusate sod 250mg capsule PO SCH (09:07)
[2017-09-27] MEDS: ferrous sulfate 325mg tablet PO SCH (09:07)
[2017-09-27] MEDS: nystatin 15 GM powder TP SCH ×2 (09:07→12:30)
[2017-09-27] MEDS: benztropine 1mg tablet PO SCH (09:07)
[2017-09-27] MEDS: LOXAPINE 50 MG PO SCH (09:08)
[2017-09-27] MEDS: insulin Lispro (HumaLOG) vial - multi-dose SQ SCH (09:13)
== END 2017-09-27 14:15 | DRG 70 ==
LOC: ER 16:15 → ED HOLD 20:49 → SUR 3N 23:35
PROVIDERS: ADMIT Internal Medicine; ATTEND Family Medicine
DX: G93.41 Metabolic encephalopathy (principal); E43 Unspecified severe protein-calorie malnutrition; N18.6 End stage renal disease; N17.9 Acute kidney failure, unspecified; N39.0 Urinary tract infection, site not specified; Z68.42 Body mass index [BMI] 45.0-49.9, adult; E87.1 Hypo-osmolality and hyponatremia; E87.2 Acidosis; I12.0 Hypertensive chronic kidney disease with stage 5 chronic kidney disease or end stage renal disease; E11.22 Type 2 diabetes mellitus with diabetic chronic kidney disease; E86.0 Dehydration; B95.1 Streptococcus, group B, as the cause of diseases classified elsewhere; E03.9 Hypothyroidism, unspecified; E66.01 Morbid (severe) obesity due to excess calories; E87.6 Hypokalemia; D64.9 Anemia, unspecified; E11.42 Type 2 diabetes mellitus with diabetic polyneuropathy; F25.0 Schizoaffective disorder, bipolar type; Z88.8 Allergy status to other drugs, medicaments and biological substances; Z79.899 Other long term (current) drug therapy
CPT/HCPCS: 36415; 71045; 76775; 80048; 80053; 81001; 82570; 82948; 83036; 83605; 83735; 84100; 84133; 84145; 84156; 84300; 84439; 84443; 84540; 84550; 84560; 85025; 85610; 85730; 87040; 87070; 87077; 87088; 87186; 96365; 97110; 97116; 97161; 97530; 99285; J0696; J1644; J1815; J7030; Q0163

== ENCOUNTER 2018-01-30 04:33 | Outpatient (CLI) | payer MEDICARE, MEDICAID ==
[~2018-01-30 04:33] MED LIST: ACET-2119 PO; ALBU18HF2 INH; AMLO10TA13 PO; BENZ2TAB7 PO; CLON0.2T PO; DIPH25CA83 PO; DOCU250C4 PO; FERR325T28 PO; FOLI1TAB16 PO; FURO40TA4 PO; HYDR-4353 PO; LACT10SO PO; LEVO100T9 PO; LORA1TAB PO; LOXA50CA PO; QUET25TA PO; QUET50TA PO; VIT1TABL50 PO
== END 2018-01-30 23:59 | disposition home or self-care (01) ==
LOC: DIABETIC 04:33
PROVIDERS: ATTEND Internal Medicine Critical Care Medicine
DX: I12.0 Hypertensive chronic kidney disease with stage 5 chronic kidney disease or end stage renal disease (principal); E11.22 Type 2 diabetes mellitus with diabetic chronic kidney disease; N18.5 Chronic kidney disease, stage 5; E11.40 Type 2 diabetes mellitus with diabetic neuropathy, unspecified
CPT/HCPCS: 97802

== ENCOUNTER 2018-03-15 03:20 | Outpatient (CLI) | payer MEDICARE, MEDICAID | END 2018-03-15 23:59 | disposition home or self-care (01) | LOC: DIABETIC 03:20 | PROVIDERS: ATTEND Internal Medicine Critical Care Medicine | DX: E11.22 Type 2 diabetes mellitus with diabetic chronic kidney disease (principal); I12.9 Hypertensive chronic kidney disease with stage 1 through stage 4 chronic kidney disease, or unspecified chronic kidney disease; N18.5 Chronic kidney disease, stage 5 | CPT/HCPCS: 97802 ==

== ENCOUNTER 2018-06-12 02:29 | Outpatient (CLI) | payer MEDICARE, MEDICAID | END 2018-06-12 23:59 | disposition home or self-care (01) | LOC: DIABETIC 02:29 | PROVIDERS: ATTEND Internal Medicine Critical Care Medicine | DX: E11.22 Type 2 diabetes mellitus with diabetic chronic kidney disease (principal); I12.0 Hypertensive chronic kidney disease with stage 5 chronic kidney disease or end stage renal disease; N18.5 Chronic kidney disease, stage 5; F25.0 Schizoaffective disorder, bipolar type; Z88.8 Allergy status to other drugs, medicaments and biological substances | CPT/HCPCS: 97802 ==

== ENCOUNTER 2018-09-11 00:55 | Outpatient (CLI) | payer MEDICARE, MEDICAID ==
[~2018-09-11 00:55] MED LIST changes: +DOCU-329 PO; -DOCU250C4 PO
== END 2018-09-11 23:59 | disposition home or self-care (01) ==
LOC: DIABETIC 00:55
PROVIDERS: ATTEND Internal Medicine Critical Care Medicine
DX: N18.5 Chronic kidney disease, stage 5 (principal); F25.9 Schizoaffective disorder, unspecified; I10 Essential (primary) hypertension; E11.9 Type 2 diabetes mellitus without complications
CPT/HCPCS: 97803

== ENCOUNTER 2019-01-01 04:17 | Outpatient (CLI) | payer MEDICARE, MEDICAID | END 2019-01-01 23:59 | disposition home or self-care (01) | LOC: DIABETIC 04:17 | PROVIDERS: ATTEND Internal Medicine Critical Care Medicine | DX: I12.9 Hypertensive chronic kidney disease with stage 1 through stage 4 chronic kidney disease, or unspecified chronic kidney disease (principal); E11.22 Type 2 diabetes mellitus with diabetic chronic kidney disease; N18.5 Chronic kidney disease, stage 5; F25.0 Schizoaffective disorder, bipolar type; E11.40 Type 2 diabetes mellitus with diabetic neuropathy, unspecified | CPT/HCPCS: 97803 ==